=== PATIENT | female | born 1950 | race Caucasian/White ===

== ENCOUNTER 2016-07-28 08:27 | Emergency (ER) | payer BC ==
[~2016-07-28] VITALS: Ht 162.6 cm; Wt 74.0 kg
[2016-07-28 08:31] VITALS: BP 141/75; PULSE 62; RESP 20; O2SAT 100
--- NOTE | 2016-07-28 08:40 | PD ---
HPI Chief Complaint: Abdominal Pain Time Seen by Provider: 08:40 Travel History International Travel<30 days: No Contact w/Intl Traveler<30days: No Traveled to known affect area: No History of Present Illness HPI 66-year-old female came to the emergency room looking very anxious with history of abdominal pain that started suddenly this morning while she was driving to her work. Patient says that because of the severity of the pain she decided to come to the emergency room instead. She is pointing her pain to the periumbilical and left upper quadrant area. No history of nausea vomiting. She says she has never had pain in this location before. No aggravating or relieving factors. She has her gallbladder taken out a year ago. The pain does not radiate to any other area. Vital signs were relatively stable in triage. She says she is otherwise very healthy. Recently she has developed a cough and she was prescribed some cough produce that she finished taking and she is on amoxicillin right now. PFSH Past Medical History Narrative Medical List of her past medical, surgical, social and family history was reviewed from the nursing note. Cardiovascular Problems: Yes (HTN) Social History Tobacco Use: No Allergies-Medications (Allergen,Severity, Reaction): Coded Allergies: No Known Allergies (Unverified , 07/28/16) Comments List of her allergies reviewed from the nursing note. Reported Meds & Prescriptions Reported Meds & Active Scripts Active Hydrocodone-Acetaminophen 5-325 mg Tab 1 Tab PO Q6H PRN Narrative Medication Awaiting for the nurse to do the med reconciliation on the patient's chart. Review of Systems Except as stated in HPI: all other systems reviewed are Neg Physical Exam Narrative GENERAL: Awake, alert, anxious, moderate distress SKIN: Focused skin assessment warm/dry. HEAD: Atraumatic. Normocephalic. EYES: Pupils equal and round. No scleral icterus. No injection or drainage. ENT: No nasal bleeding or discharge. Mucous membranes pink and moist. NECK: Trachea midline. No JVD. CARDIOVASCULAR: Regular rate and rhythm. No murmur appreciated. RESPIRATORY: No accessory muscle use. Clear to auscultation. Breath sounds equal bilaterally. GASTROINTESTINAL: Abdomen soft, non-tender, nondistended. Hepatic and splenic margins not palpable. MUSCULOSKELETAL: No obvious deformities. No clubbing. No cyanosis. No edema. NEUROLOGICAL: Awake and alert. No obvious cranial nerve deficits. Motor grossly within normal limits. Normal speech. PSYCHIATRIC: Appropriate mood and affect; insight and judgment normal. Data Data Last Documented VS Vital Signs Date Time Temp Pulse Resp B/P Pulse Ox O2 Delivery O2 Flow Rate FiO2 07/28/16 08:47 16 96 Room Air 07/28/16 08:34 07/28/16 08:31 62 Orders Electrocardiogram (07/28/16 ) Complete Blood Count With Diff (07/28/16 08:45) Comprehensive Metabolic Panel (07/28/16 08:45) Lipase (07/28/16 08:45) Prothrombin Time / Inr (Pt) (07/28/16 08:45) Urinalysis - C+S If Indicated (07/28/16 08:45) Ct Abd/Pel W Iv Contrast(Rout) (07/28/16 08:45) Iv Access Insert/Monitor (07/28/16 08:45) Ecg Monitoring (07/28/16 08:45) Oximetry (07/28/16 08:45) Morphine Inj (Morphine Inj) (07/28/16 08:45) Ondansetron Inj (Zofran Inj) (07/28/16 08:45) Sodium Chlor 0.9% 1000 Ml Inj (Ns 1000 M (07/28/16 08:45) Sodium Chloride 0.9% Flush (Ns Flush) (07/28/16 08:45) Troponin I (07/28/16 08:45) Iohexol 350 Inj (Omnipaque 350 Inj) (07/28/16 10:44) Labs Laboratory Tests Test 07/28/16 07/28/16 09:10 09:50 White Blood Count 5.1 TH/MM3 Red Blood Count 4.67 MIL/MM3 Hemoglobin 13.3 GM/DL Hematocrit 39.3 % Mean Corpuscular Volume 84.3 FL Mean Corpuscular Hemoglobin 28.6 PG Mean Corpuscular Hemoglobin 33.9 % Concent Red Cell Distribution Width 13.3 % Platelet Count 197 TH/MM3 Mean Platelet Volume 8.7 FL Neutrophils (%) (Auto) 52.1 % Lymphocytes (%) (Auto) 33.6 % Monocytes (%) (Auto) 6.6 % Eosinophils (%) (Auto) 7.1 % Basophils (%) (Auto) 0.6 % Neutrophils # (Auto) 2.6 TH/MM3 Lymphocytes # (Auto) 1.7 TH/MM3 Monocytes # (Auto) 0.3 TH/MM3 Eosinophils # (Auto) 0.4 TH/MM3 Basophils # (Auto) 0.0 TH/MM3 CBC Comment DIFF FINAL Differential Comment Prothrombin Time 10.7 SEC Prothromb Time International 1.0 RATIO Ratio Sodium Level 142 MEQ/L Potassium Level 4.0 MEQ/L Chloride Level 106 MEQ/L Carbon Dioxide Level 25.9 MEQ/L Anion Gap 10 MEQ/L Blood Urea Nitrogen 16 MG/DL Creatinine 0.86 MG/DL Estimat Glomerular Filtration 66 ML/MIN Rate Random Glucose 101 MG/DL Calcium Level 8.9 MG/DL Total Bilirubin 1.3 MG/DL Aspartate Amino Transf 63 U/L (AST/SGOT) Alanine Aminotransferase 32 U/L (ALT/SGPT) Alkaline Phosphatase 83 U/L Troponin I LESS THAN 0.02 NG/ML Total Protein 6.9 GM/DL Albumin 3.6 GM/DL Lipase 735 U/L Urine Color YELLOW Urine Turbidity CLOUDY Urine pH 5.5 Urine Specific [place] 1.032 Urine Protein 30 mg/dL Urine Glucose (UA) NEG mg/dL Urine Ketones NEG mg/dL Urine Occult Blood NEG Urine Nitrite NEG Urine Bilirubin NEG Urine Urobilinogen 2.0 MG/DL Urine Leukocyte Esterase SMALL Urine RBC 2 /hpf Urine WBC 4 /hpf Urine Squamous Epithelial 4 /hpf Cells Urine Calcium Oxalate Crystals FEW /hpf Urine Amorphous Sediment LARGE Urine Bacteria FEW /hpf Urine Mucus FEW /lpf Microscopic Urinalysis Comment CULT NOT INDICATED MDM Medical Decision Making Medical Screen Exam Complete: Yes Emergency Medical Condition: Yes Medical Record Reviewed: Yes Interpretation(s) Twelve-lead EKG was done by me. Normal sinus rhythm, left axis deviation, old anterior and inferior ID, poor R-wave progression, flipped T waves in inferior leads, first-degree AV block, bradycardia. Heart rate of 59 bpm. Differential Diagnosis Enteritis, colitis, diverticulitis, small bowel obstruction Narrative Course 9:13 AM awaiting for the blood test results and the CAT scan to be done and resulted. Patient was medicated for pain and getting an IV fluid bolus. Given patient's pain out of proportion I've ordered a troponin, EKG and the CT with IV contrast. 10:45 AM blood test results of back and the lipase is slightly elevated. Rest of the test results appeared to be within acceptable limits. Awaiting for the CAT scan to be done and resulted. 11:[address] scan is WNL. We will DC her home. Procedures EKG Prior to Arrival: No Diagnosis Primary Impression: Abdominal pain Qualified Code: R10.9 - Abdominal pain, unspecified location Additional Impression: Pancreatitis, acute Qualified Code: K85.90 - Acute pancreatitis, unspecified complication status, unspecified pancreatitis type Referrals: Primary Care Physician 3 days Additional Instructions: Please return to the ER if the condition worsens or any other new concerns. Take the medications as per the prescription direction. Do not drive while on the medication since they will make you groggy. Follow-up with your primary care in couple days. Clear diet only for the next 48 hours. If the pain gets better and he can slowly proceed to regular food. Med/Other Pt SpecificInfo: Prescription(s) given Scripts Hydrocodone-Acetaminophen 5-325 mg Tab1 Tab PO Q6H PRN (PAIN) #20 TAB Ref 0 Prov:Jeff Payne MD 07/28/16 Disposition: 01 DISCHARGE HOME Condition: Stable Jeff Payne MD Jul 28, 2016 08:40
[2016-07-28] MEDS ORDERED: SODIUM CHLORIDE 0.9% FLUSH 10 ML FLUSH IV FLUSH PRN (08:45)
[2016-07-28] MEDS ORDERED: MORPHINE SULFATE 4 MG/ML INJ IV PUSH ONE (08:45)
[2016-07-28] MEDS ORDERED: ONDANSETRON HCL 4 MG/2 ML VIAL IVP ONE (08:45)
[2016-07-28] MEDS ORDERED: SODIUM CHLOR 0.9% 1000 ML INJ 1,000 ML IV SCH (08:45)
[2016-07-28 08:47] VITALS: RESP 16; O2SAT 96
[2016-07-28 09:29] LABS: AUTOMATED NEUTROPHIL # 2.6 TH/MM3 (1.8-7.7); BASOPHIL % 0.6 % (0.0-2.0); EOSINOPHIL # 0.4 TH/MM3 (0-0.4); EOSINOPHIL % 7.1 % (0.0-4.0); HEMATOCRIT 39.3 % (35.0-46.0); HEMO FLAGS DIFF FINAL; LYMPH % 33.6 % (9.0-44.0); LYMPHOCYTE # 1.7 TH/MM3 (1.0-4.8); MEAN CELL VOLUME 84.3 FL (80.0-100.0); MEAN CORPUSCULAR HEMOGLOBIN 28.6 PG (27.0-34.0); MEAN CORPUSCULAR HGB CONC 33.9 % (32.0-36.0); MONO % 6.6 % (0.0-8.0); NEUT % 52.1 % (16.0-70.0); PLATELET COUNT 197 TH/MM3 (150-450); RED BLOOD COUNT 4.67 MIL/MM3 (4.00-5.30); RED CELL DISTRIBUTION WIDTH 13.3 % (11.6-17.2); WHITE BLOOD COUNT 5.1 TH/MM3 (4.0-11.0)
[2016-07-28 09:38] LABS: PROTHROMBIN TIME - PATIENT 10.7 SEC (9.8-11.6)
[2016-07-28 09:54] LABS: ALKALINE PHOSPHATASE 83 U/L (45-117); ALT (GPT) 32 U/L (10-53); ANION GAP 10 MEQ/L (5-15); AST (GOT) 63 U/L (15-37); BICARBONATE 25.9 MEQ/L (21.0-32.0); BLOOD UREA NITROGEN 16 MG/DL (7-18); CHLORIDE 106 MEQ/L (98-107); GLOMERULAR FILTRATION RATE 66 ML/MIN (>89); SODIUM (NA) 142 MEQ/L (136-145); TOTAL BILIRUBIN ADULT 1.3 MG/DL (0.2-1.0)
[2016-07-28] MEDS ORDERED: IOHEXOL 350 MG/ML 10 ML VIAL (for RAD DIAG) IV ONE (10:44)
[2016-07-28 10:45] LABS: BACTERIA, URINE FEW /hpf; BLOOD, URINE NEG (NEG); CALCIUM OXALATE CRYSTALS,URINE FEW /hpf; GLUCOSE,URINE NEG (NEG); KETONE, URINE NEG (NEG); NITRITE,URINE NEG (NEG); PH, URINE 5.5 (5.0-8.5); SQUAMOUS EPITHELIAL CELL URINE 4 /hpf (0-5)
[2016-07-28 10:46] LABS: URINE COLOR YELLOW (YELLW/STRAW)
[2016-07-28 10:47] LABS: COMMENT (UR) CULT NOT INDICATED; CULTURE IF INDICATED CULT NOT INDICATED; MUCUS URINE FEW /lpf (OCC)
--- NOTE | 2016-07-28 11:21 | RADRPT ---
EXAM DATE/TIME: 07/28/2016 10:31 [facility] COMPARISON: No previous studies available for comparison. INDICATIONS : Left lower quadrant pain. IV CONTRAST: 100 cc Omnipaque 350 (iohexol) IV ORAL CONTRAST: No oral contrast ingested. RADIATION DOSE: 9.96 CTDIvol (mGy) MEDICAL HISTORY : Cardiovascular disease. Hypertension. SURGICAL HISTORY : Cholecystectomy. ENCOUNTER: Initial ACUITY: 1 day PAIN SCALE: 5/10 LOCATION: Left lower quadrant TECHNIQUE: Volumetric scanning of the abdomen and pelvis was performed. Using automated exposure control and ad justment of the mA and/or kV according to patient size, radiation dose was kept as low as reasonably achievable to obtain optimal diagnostic quality images. FINDINGS: The limited portion of the lung base visualized is clear. Examination of the liver demonstrates 2 punctate low attenuation lesions. These both measure only al roximately 2-3 mm and are too small to assess by CT imaging. The patient is post cholecystectomy. The liver, spleen, pancreas, adrenal glands and kidneys are normal in appearance. There is no free intraperitoneal air. No free intraperitoneal fluid is identified. There is no retrop eritoneal lymphadenopathy. The aorta is normal in caliber. The visualized loops of small and large caitlin wel in the upper abdomen are unremarkable. The anterior abdominal wall is intact. There is no free fluid within the pelvis. No iliac or inguinal adenopathy is present. The reproductiv e organs are intact. The visualized bony structures demonstrate mild degenerative changes but are otherwise intact. CONCLUSION: 1. No definite abnormality to explain the patient's lower abdominal pain is identified. Jude Bruno MD on July 28, 2016 at 11:16 Board Certified Radiologist. This report was verified electronically.
[2016-07-28] MEDS ORDERED: HYDR-3516 PO (11:58)
--- NOTE | 2016-07-29 10:34 | EKG ---
Date Performed: 07/28/2016 Time Performed: 08:51:56 PTAGE: 66 years EKG: SINUS BRADYCARDIA WITH SINUS ARRHYTHMIA WITH FIRST DEGREE AV BLOCK LOW QRS VOLTAGE IN PRECO RDIAL LEADS SEPTAL MYOCARDIAL INFARCTION ABNORMAL ECG NO PREVIOUS TRACING DOCTOR: Cristal Villanueva Interpretating Date/Time 07/29/2016 10:27:16
== END 2016-07-28 12:39 | disposition home or self-care (01) ==
LOC: NEPC 08:27
DX: R10.9 Unspecified abdominal pain (principal); K85.90 Acute pancreatitis without necrosis or infection, unspecified; R00.1 Bradycardia, unspecified
CPT/HCPCS: 74177; 80053; 81001; 83690; 84484; 85025; 85610; 93005; 99284; J7030; Q9967